=== PATIENT | male | born 1955 | race Caucasian/White ===

== ENCOUNTER 2023-02-24 07:25 | Inpatient (IN) ==
[2023-02-18 18:08] LABS: Appearance,Urine CLEAR (Clear); Bilirubin,Urine Negative (Negative); Color,Urine YELLOW; Culture Indicated,Urine No; Glucose,Urine (UA) Negative (Negative); Ketones,Urine Negative (Negative); Leukocyte Esterase,Urine Negative /uL (Negative); Nitrate,Urine Negative (Negative); Protein,Urine Negative (Negative); Specific Gravity,Urine 1.016 (1.000-1.035); Urine Blood Negative (Negative); Urobilinogen,Urine Negative
[2023-02-18 18:13] LABS: Basophils # (Auto) 0.03 K/mcL (0.00-0.30); Basophils % (Auto) 0.5 % (0.0-2.0); Eosinophils # (Auto) 0.07 K/mcL (0.00-0.70); Eosinophils % (Auto) 1.2 % (0.0-7.0); Hematocrit 40.7 % (40.1-51.0); Lymphocytes # (Auto) 1.67 K/mcL (1.50-4.80); Lymphocytes % (Auto) 29.2 % (15.5-49.0); Mean Cell Volume 90.6 fL (80.0-100.0); Mean Corpuscular HGB Conc 31.9 g/dL (31.0-36.0); Mean Platelet Volume 10.6 fL (8.8-12.5); Monocytes # (Auto) 0.36 K/mcL (0.10-0.90); Monocytes % (Auto) 6.3 % (1.0-12.0); Neutrophils % (Auto) 62.6 % (38.0-78.0); Platelet Count 239 K/mcL (140-440); RBC 4.49 M/mcL (4.63-6.08); Red Cell Distribution Width 13.5 % (11.5-14.5); WBC 5.7 K/mcL (4.5-11.0)
[2023-02-18 18:21] LABS: Prothrombin Time 13.3 sec (11.9-14.5)
[2023-02-18 18:55] LABS: ALT/SGPT 20 U/L (<40); AST/SGOT 15 U/L (<40); Albumin 4.6 gm/dL (3.2-5.2); Albumin/Globulin Ratio 1.6 (1.0-2.3); Alkaline Phosphatase 95 U/L (39-117); Bilirubin,Total 0.3 mg/dL (0.1-1.0); Blood Urea Nitrogen 16 mg/dL (8-23); Calcium 9.6 mg/dL (8.6-10.4); Carbon Dioxide 24 mmol/L (22-30); Chloride 102 mmol/L (96-108); Globulin 2.8 gm/dL (2.2-3.7); Glomerular Filtration Rate 98; Glucose 91 mg/dL (70-105)
[~2023-02-24 07:25] MED LIST: ceFAZolin 2 GM in DEXTROSE 5% IN WATER 50 ML IV SCH
[2023-02-24] MEDS ORDERED: SCOPOLAMINE 1 PATCH PATCH TOPICAL PRN (07:52)
[2023-02-24] MEDS ORDERED: MIDAZOLAM 2 MG/2 ML VIAL ONE (08:12)
[2023-02-24] MEDS ORDERED: fentaNYL 100 MCG/2 ML VIAL IV ONE ×2 (08:12→11:03)
[2023-02-24] MEDS ORDERED: KETAMINE 50 MG/ML Syringe IV ONE ×2 (08:12→10:08)
[2023-02-24] MEDS ORDERED: GLYCOPYRROLATE 0.2 MG/ML VIAL IV ONE ×2 (08:13→11:03)
[2023-02-24] MEDS ORDERED: PHENYLephrine 1 MG/10 ML SYRINGE (ANEST) ONE ×3 (08:13→12:13)
[2023-02-24] MEDS ORDERED: ONDANSETRON 4 MG/2 ML VIAL ONE (08:13)
[2023-02-24] MEDS ORDERED: SUCCINYLCHOLINE 200 MG/10 ML VIAL IV ONE (08:13)
[2023-02-24] MEDS ORDERED: ROCURONIUM 10 MG/ML ML IV ONE (08:13)
[2023-02-24] MEDS ORDERED: LIDOCAINE 2% PF 5 ML VIAL ONE ×2 (08:13→10:08)
[2023-02-24] MEDS ORDERED: DEXAMETHASONE 10 MG/ML VIAL ONE (08:13)
[2023-02-24] MEDS ORDERED: PROPOFOL 200 MG/20 ML VIAL IV ONE ×2 (08:14→10:49)
[2023-02-24] MEDS ORDERED: MAGNESIUM SULFATE 2 GM/50 ML BAG IV ONE ×2 (08:14→10:08)
[2023-02-24] MEDS ORDERED: ceFAZolin 2 GM in DEXTROSE 5% IN WATER 50 ML IV SCH (08:30)
[2023-02-24] MEDS ORDERED: KETOROLAC 30 MG/ML VIAL ONE (10:08)
[2023-02-24] MEDS ORDERED: SUGAMMADEX SODIUM 200 MG/2 ML VIAL IV ONE (10:08)
[2023-02-24] MEDS ORDERED: ePHEDrine 50 MG/5 ML SYRINGE (ANEST) IV ONE ×2 (11:01→12:13)
[2023-02-24] MEDS ORDERED: THROMBIN (BOVINE) 5,000 UNIT VIAL TOPICAL ONE (11:46)
[2023-02-24] MEDS ORDERED: GELATIN SPONGE,ABSORBABLE 1 EACH SPONGE TOPICAL ONE (11:46)
[2023-02-24] MEDS ORDERED: BUPIVACAINE 0.25% 50 ML VIAL IJ ONE (11:46)
[2023-02-24] MEDS ORDERED: TRANEXAMIC ACID 1,000 MG/10 ML VIAL IV ONE (11:48)
[2023-02-24] MEDS ORDERED: HYDROmorphone 1 MG/ML SYRINGE ONE (14:00)
[2023-02-24] MEDS ORDERED: BENZOCAINE/MENTHOL 1 LOZENGE PO PRN ×2 (15:03→15:42)
[2023-02-24] MEDS ORDERED: ONDANSETRON 4 MG ODT TABLET SL PRN (15:09)
[2023-02-24] MEDS ORDERED: oxyCODONE IR 5 MG TABLET PO PRN ×2 (15:09→16:44)
[2023-02-24] MEDS ORDERED: METHOCARBAMOL 750 MG TABLET PO PRN (15:13)
[2023-02-24] MEDS ORDERED: traMADol 50 MG TABLET PO PRN (15:22)
[2023-02-24] MEDS ORDERED: METHOCARBAMOL 1,000 MG/10 ML VIAL IV PRN (15:42)
[2023-02-24] MEDS ORDERED: IPRATROPIUM/ALBUTEROL 3 ML AMPUL.NEB NEB PRN (15:42)
[2023-02-24] MEDS ORDERED: HYDROmorphone 0.5 MG/0.5 ML SYRINGE IV PRN (15:42)
[2023-02-24] MEDS ORDERED: NALOXONE HCL 0.4 MG/ML VIAL IV PRN (15:42)
[2023-02-24] MEDS ORDERED: ONDANSETRON 4 MG/2 ML VIAL IV PRN (15:42)
[2023-02-24] MEDS ORDERED: fentaNYL 100 MCG/2 ML VIAL IV PRN (15:42)
[2023-02-24] MEDS ORDERED: LACTATED RINGERS 250 ML IV PRN (15:42)
[2023-02-24] MEDS ORDERED: MEPERIDINE 25 MG/ML VIAL IV PRN (15:42)
[2023-02-24] MEDS ORDERED: PROMETHAZINE 25 MG/ML VIAL IV PRN (15:42)
[2023-02-24] MEDS ORDERED: FLUMAZENIL 0.1 MG/ML ML IV PRN (15:42)
[2023-02-24] MEDS ORDERED: LACTATED RINGERS 1,000 ML IV SCH (15:45)
[2023-02-24] MEDS: HYDROmorphone 1 MG/ML SYRINGE IV PRN ×3 (16:14→18:09)
[2023-02-24] MEDS: 0.9 % SODIUM CHLORIDE 1,000 ML IV SCH (16:18)
[2023-02-24] MEDS: METHOCARBAMOL 750 MG TABLET PO PRN (16:47)
[2023-02-24] MEDS: oxyCODONE/APAP 5/325MG TABLET PO PRN ×2 (17:08→21:11)
[2023-02-24] MEDS: ceFAZolin 1 GM VIAL IV SCH (17:42)
[2023-02-24] MEDS ORDERED: FAMOTIDINE 20 MG TABLET PO ONE ×2 (18:43→21:03)
[2023-02-24] MEDS ORDERED: METOCLOPRAMIDE 10 MG/2 ML VIAL IV PRN (18:44)
[2023-02-24] MEDS ORDERED: MAG HYDROX/AL HYDROX/SIMETH 30 ML ORAL.SUSP PO PRN (18:46)
[2023-02-24] MEDS: GABAPENTIN 300 MG CAPSULE PO SCH (21:09)
[2023-02-24] MEDS: SENNOSIDES 1 TABLET PO SCH (21:09)
[2023-02-24] MEDS: ATORVASTATIN 40 MG TABLET PO SCH (21:10)
[2023-02-24] MEDS: DOCUSATE SODIUM 100 MG CAPSULE PO SCH (21:10)
[2023-02-24] MEDS: 0.9 % SODIUM CHLORIDE 10 ML SYRINGE IV SCH (21:11)
[2023-02-25] MEDS: 0.9 % SODIUM CHLORIDE 1,000 ML IV SCH (02:32)
[2023-02-25] MEDS: METHOCARBAMOL 750 MG TABLET PO PRN ×4 (02:40→20:35)
[2023-02-25] MEDS: oxyCODONE/APAP 5/325MG TABLET PO PRN ×6 (02:40→17:30)
[2023-02-25] MEDS: ceFAZolin 1 GM VIAL IV SCH (02:41)
[2023-02-25] MEDS: 0.9 % SODIUM CHLORIDE 10 ML SYRINGE IV SCH ×4 (04:23→20:36)
[2023-02-25 07:05] LABS: Hematocrit 30.5 % (40.1-51.0); Hemoglobin 9.8 g/dL (13.7-17.5)
[2023-02-25 08:10] LABS: Blood Urea Nitrogen 16 mg/dL (8-23); Calcium 8.5 mg/dL (8.6-10.4); Carbon Dioxide 22 mmol/L (22-30); Chloride 104 mmol/L (96-108); Glomerular Filtration Rate 93; Glucose 112 mg/dL (70-105)
[2023-02-25] MEDS: CYANOCOBALAMIN (VITAMIN B-12) 500 MCG TABLET PO SCH (08:17)
[2023-02-25] MEDS: VITAMIN D3 25 MCG TABLET PO SCH (08:17)
[2023-02-25] MEDS: LOSARTAN 50 MG TABLET PO SCH (08:17)
[2023-02-25] MEDS: ZINC SULFATE 50 MG CAPSULE PO SCH (08:18)
[2023-02-25] MEDS: TAMSULOSIN 0.4 MG CAPSULE PO SCH ×2 (08:19→20:35)
[2023-02-25] MEDS: CELECOXIB 200 MG CAPSULE PO SCH ×2 (08:19→20:35)
[2023-02-25] MEDS: amLODIPine 10 MG TABLET PO SCH (08:19)
[2023-02-25] MEDS: DOCUSATE SODIUM 100 MG CAPSULE PO SCH ×2 (08:20→20:35)
[2023-02-25] MEDS: GABAPENTIN 300 MG CAPSULE PO SCH ×3 (08:20→20:35)
[2023-02-25] MEDS: ASPIRIN 81 MG TAB.CHEW PO SCH (08:22)
[2023-02-25] MEDS: ATORVASTATIN 40 MG TABLET PO SCH (20:35)
[2023-02-25] MEDS: SENNOSIDES 1 TABLET PO SCH (20:35)
[2023-02-26] MEDS: oxyCODONE/APAP 5/325MG TABLET PO PRN ×2 (02:09→08:08)
[2023-02-26] MEDS: 0.9 % SODIUM CHLORIDE 10 ML SYRINGE IV SCH (04:20)
[2023-02-26 07:28] LABS: Hemoglobin 9.6 g/dL (13.7-17.5)
[2023-02-26] MEDS: ASPIRIN 81 MG TAB.CHEW PO SCH (08:08)
[2023-02-26] MEDS: VITAMIN D3 25 MCG TABLET PO SCH (08:08)
[2023-02-26] MEDS: DOCUSATE SODIUM 100 MG CAPSULE PO SCH (08:08)
[2023-02-26] MEDS: METHOCARBAMOL 750 MG TABLET PO PRN (08:08)
[2023-02-26] MEDS: CELECOXIB 200 MG CAPSULE PO SCH (08:08)
[2023-02-26] MEDS: ZINC SULFATE 50 MG CAPSULE PO SCH (08:08)
[2023-02-26] MEDS: LOSARTAN 50 MG TABLET PO SCH (08:08)
[2023-02-26] MEDS: GABAPENTIN 300 MG CAPSULE PO SCH (08:08)
[2023-02-26] MEDS: amLODIPine 10 MG TABLET PO SCH (08:08)
[2023-02-26] MEDS: CYANOCOBALAMIN (VITAMIN B-12) 500 MCG TABLET PO SCH (08:08)
[2023-02-26] MEDS ORDERED: TAMSULOSIN 0.4 MG CAPSULE PO SCH (21:00)
== END 2023-02-26 10:48 | disposition home or self-care (01) | DRG 460 ==
LOC: MEDSUR 07:25
PROVIDERS: ADMIT Orthopaedic Surgery Orthopaedic Surgery of the Spine; ATTEND Orthopaedic Surgery Orthopaedic Surgery of the Spine